=== PATIENT | male | born 1970 | race Two or more races ===

== ENCOUNTER 2023-04-12 09:12 | Emergency (ER) | payer MEDICAID ==
[~2023-04-12] VITALS: Ht 182.9 cm; Wt 103.3 kg
[2023-04-12 09:54] VITALS: BP 147/95; PULSE 90; RESP 18; TEMP 98.3; O2SAT 96
[2023-04-12] MEDS ORDERED: METH-1182 PO (10:53)
[2023-04-12] MEDS ORDERED: IBUP-1456 PO (10:53)
== END 2023-04-12 10:56 | disposition home or self-care (01) ==
LOC: ER 09:12
DX: S29.011A Strain of muscle and tendon of front wall of thorax, initial encounter (principal); V43.52XA Car driver injured in collision with other type car in traffic accident, initial encounter; Y93.89 Activity, other specified; Y92.488 Other paved roadways as the place of occurrence of the external cause; Y99.8 Other external cause status
CPT/HCPCS: 71101